=== PATIENT | male | born 1955 | race Hispanic/Latino ===

== ENCOUNTER 2022-02-21 12:58 | Emergency (ER) | payer MEDICARE ==
[~2022-02-21] VITALS: Ht 175.3 cm; Wt 96.8 kg
[2022-02-21 13:00] VITALS: BP 125/82
[2022-02-21] MEDS ORDERED: OCTYL 2-CYANOACRYLATE 1 EACH TP ONE (13:23)
[2022-02-21] MEDS ORDERED: TETANUS/DIPHTHERIA TOXOID [ADULT] 0.5 ML VIAL IM ONE ×2 (15:12→15:30)
[2022-02-21] MEDS ORDERED: BACI30OI6 TP (15:25)
== END 2022-02-21 15:41 | disposition home or self-care (01) ==
LOC: EDH 12:58
DX: S01.81XA Laceration without foreign body of other part of head, initial encounter (principal); E11.9 Type 2 diabetes mellitus without complications; E78.00 Pure hypercholesterolemia, unspecified; X58.XXXA Exposure to other specified factors, initial encounter; Y93.89 Activity, other specified; Y92.89 Other specified places as the place of occurrence of the external cause; Y99.8 Other external cause status
CPT/HCPCS: 12011; 90471; 90714